=== PATIENT | female | born 1985 | race Caucasian/White ===

== ENCOUNTER 2017-03-08 09:33 | Emergency (ER) | payer MEDICAID ==
[~2017-03-08] VITALS: Ht 162.6 cm; Wt 59.0 kg
[2017-03-08 09:36] VITALS: Ht 162.6 cm; Wt 59.0 kg
[2017-03-08] MEDS ORDERED: ACETAMINOPHEN 325 MG TAB PO STA (10:11)
[2017-03-08] MEDS ORDERED: SOD CHLORIDE 0.9% 1,000 ML IV STA (10:11)
[2017-03-08 11:00] LABS: ADD SCAN DIFF NO
[2017-03-08 11:08] LABS: ADD UMIC YES; URINE BILIRUBIN (Dip) 1+ (NEGATIVE); URINE BLOOD (Dip) TRACE (NEGATIVE); URINE COLOR LT. YELLOW (YELLOW); URINE GLUCOSE (Dip) NEGATIVE (NEGATIVE); URINE KETONES (Dip) 3+ (NEGATIVE); URINE LEUKOCYTE ESTERASE (Dip) 2+ (NEGATIVE); URINE NITRITE (Dip) NEGATIVE (NEGATIVE); URINE TOTAL PROTEIN (Dip) 1+ (NEGATIVE); URINE UROBILINOGEN (Dip) 1.0 E.U./dL (0.1-1.0)
[2017-03-08 11:09] LABS: BASOPHILS % 0.3 % (0.0-2.0); EOSINOPHILS % 0.2 % (0.0-7.0); HEMATOCRIT 36.3 % (37.0-47.0); HEMOGLOBIN 11.9 g/dl (12.0-16.0); LYMPHOCYTES # 1.7 10^3/ul (0.8-2.9); LYMPHOCYTES % 13.5 % (15.0-51.0); MEAN CORPUSCULAR HEMOGLOBIN 29.1 pg (29.0-33.0); MEAN CORPUSCULAR HGB CONC 32.8 g/dl (32.0-37.0); MEAN CORPUSCULAR VOLUME 88.8 fl (82.0-101.0); MEAN PLATELET VOLUME 9.8 fl (7.4-10.4); MONOCYTE # 0.7 10^3/ul (0.3-0.9); NEUTROPHIL # 9.8 10^3/ul (1.6-7.5); NEUTROPHILS % 79.4 % (39.0-77.0); PLATELET COUNT 356 10^3/UL (140-415); RED BLOOD COUNT 4.09 10^6/ul (4.20-5.40); RED CELL DISTRIBUTION WIDTH 14.4 % (11.5-14.5); WHITE BLOOD COUNT 12.4 10^3/ul (4.8-10.8)
[2017-03-08 11:16] LABS: BACTERIA,URINE MANY
[2017-03-08 11:22] LABS: ALBUMIN 4.4 g/dl (3.3-4.9)
[2017-03-08 11:23] LABS: POTASSIUM 3.3 mmol/L (3.5-5.1)
[2017-03-08] MEDS ORDERED: CEFTRIAXONE 1 GM/50 ML (PMX) 50 ML IVPB STA (11:24)
[2017-03-08 11:25] LABS: ALBUMIN/GLOBULIN RATIO 1.12; BILIRUBIN,INDIRECT 0.3 mg/dl (0-1.1); BILIRUBIN,TOTAL 0.3 mg/dl (0.2-1.3); CREATININE 0.49 mg/dl (0.44-1.00); TOTAL PROTEIN 8.3 g/dl (6.1-8.1)
[2017-03-08 11:26] LABS: CALCIUM 9.6 mg/dl (8.4-10.2)
--- NOTE | 2017-03-08 11:29 | RADRPT ---
PROCEDURE: Right Upper Quadrant Ultrasound. CLINICAL INDICATION: epigastric pain, SP willow, TECHNIQUE: Multiple real-time images were acquired of the patient's right upper quadrant abdomen a nd retroperitoneum utilizing a high resolution transducer. COMPARISON: None FINDINGS: The liver measures 15.5 cm, and demonstrates normal echogenicity. The main portal vein is patent wit h proper directional flow. There is no intrahepatic biliary ductal dilatation. The extrahepatic comm on bile duct measures 5 mm. The gallbladder is absent.. The visualized pancreas is unremarkable. The right kidney measures 11.2 cm and demonstrates normal echotexture. There is fullness of the righ t renal collecting system without omar hydronephrosis.. The visualized abdominal aorta and IVC are grossly unremarkable. IMPRESSION: Fullness of the right renal collecting system without omar hydronephrosis, likely related to the re ported . Status post cholecystectomy. Normal CBD. RPTAT: EE Physician Bing Date Time Electronically viewed and signed by Physician Bing on 03/08/2017 11:29 /
--- NOTE | 2017-03-08 11:31 | RADRPT ---
PROCEDURE: US OB CLINICAL INDICATION: epigastric pain, SP willow TECHNIQUE: Multiple sonographic images of the pelvis were obtained. The images were reviewed on a PACS workstation. COMPARISON: None FINDINGS: The cervix is not well visualized. Bilateral adnexa are unremarkable. There is a single viable intrauterine gestation. Cardiac activity is present with 146 beats per minute. There is a breech presentation. The placenta is posterior. There is no evidence for an abruption or placenta previa. There is a normal amount of amniotic fluid with a maximum vertical pocket of 6.1 cm Measurements were made in order to determine age. The results are as follows (cm): BPD =4.70 HC =15.61 AC =14.74 FL =3.02 Estimated gestational age by ultrasound of approximately 19 weeks, 1 day. The estimated date of delivery by ultrasound is 08/01/2017. Reported gestational age by LMP of approximately 19 weeks, 5 days. The reported date of delivery by LMP is 07/28/2017. EFW = 299 grams (36th percentile) IMPRESSION: Single viable intrauterine gestation of approximately 19 weeks, 1 . The estimated date of delivery is day 08/01/2017 . Dating by ultrasound is within 4 days of dating by LMP. Breech presentation. Normal amount of amniotic fluid. Estimated weight is in the 36th percentile. RPTAT: EE Physician Bing Date Time Electronically viewed and signed by Physician Bing on 03/08/2017 11:31 RA/
[2017-03-08] MEDS ORDERED: CEPH-443 PO (12:35)
--- NOTE | 2017-03-08 13:12 | ERD ---
ER Documentation Chief Complaint Date/Time DATE: 03/08/17 TIME: 13:06 Chief Complaint abd pain raditing to back x 2 days , 19 weeks 4 days preg , no vag bleed HPI This is a 31-year-old female A0 stating that she is 19 weeks with a last menstrual period that started on October 21 presenting to the emergency department complaining of epigastric abdominal pain that radiates to her back that started 2 days ago. She states the pain is 6-8 out of 10, described as constant and sharp. She states the pain worsens when she lays down. She denies any fevers, nausea, vomiting, diarrhea, urinary symptoms, hematuria. She denies any pelvic pain or vaginal bleeding. Patient states that she has had a cholecystectomy 3 years ago and an appendectomy 12 years ago. Patient states her last meal was yesterday. Denies taking any medications today ROS All systems reviewed and are negative except as per history of present illness. Medications Home Meds Active Scripts Cephalexin* (Keflex*) 500 Mg Capsule, 500 MG PO TID for 14 Days, CAP Prov:QUINN JOHN PA-C 03/08/17 PMhx/Soc Medical and Surgical Hx: pt denies Medical Hx, pt denies Surgical Hx Hx Alcohol Use: No Hx Substance Use: No Hx Tobacco Use: No Smoking Status: Never smoker Physical Exam Vitals Vital Signs Date Time Temp Pulse Resp B/P Pulse Ox O2 Delivery O2 Flow Rate FiO2 03/08/17 09:36 97.8 102 18 122/75 98 Physical Exam GENERAL: well-developed/well-nourished, in no apparent distress, non-toxic appearing HENT: NC/AT, moist mucous membranes EYES: Conjunctiva normal NECK: Supple, no lymphadenopathy PULM: CTA bilaterally, no rales, rhonchi, or wheezing heard CV: Normal S1S2, RRR, good capillary refill GI: Soft, distended due to , mild tender to palpation epigastric region Normal bowel sounds, no masses or organomegaly felt on exam No gross peritonitis, no bruits Negative Rovsing, negative [place], negative McBurney's point, Negative CVAT BACK: No masses EXT: No clubbing, cyanosis, or edema NEURO: Alert and Orientated SKIN: Intact, normal turgor PSYCH: Normal mood and mentation Result Diagram: 03/08/17 1035 03/08/17 1035 Results 24 hrs Laboratory Tests Test 03/08/17 10:35 White Blood Count 12.410^3/ul Red Blood Count 4.0910^6/ul Hemoglobin 11.9g/dl Hematocrit 36.3% Mean Corpuscular Volume 88.8fl Mean Corpuscular Hemoglobin 29.1pg Mean Corpuscular Hemoglobin Concent 32.8g/dl Red Cell Distribution Width 14.4% Platelet Count 76849^3/UL Mean Platelet Volume 9.8fl Neutrophils % 79.4% Lymphocytes % 13.5% Monocytes % 6.0% Eosinophils % 0.2% Basophils % 0.3% Nucleated Red Blood Cells % 0.0/100WBC Neutrophils # 9.810^3/ul Lymphocytes # 1.710^3/ul Monocytes # 0.710^3/ul Eosinophils # 0.010^3/ul Basophils # 0.010^3/ul Nucleated Red Blood Cells # 0.010^3/ul Urine Color LT. YELLOW Urine Clarity CLEAR Urine pH 6.0 Urine Specific [place] 1.025 Urine Ketones 3+ Urine Nitrite NEGATIVE Urine Bilirubin 1+ Urine Ictotest Pending Urine Urobilinogen 1.0 E.U./dL Urine Leukocyte Esterase 2+ Urine Microscopic RBC 5-10/HPF Urine Microscopic WBC 10-25/HPF Urine Epithelial Cells MODERATE Urine Bacteria MANY Urine Hemoglobin TRACE Urine Glucose NEGATIVE% Urine Total Protein 1+ Sodium Level 138mmol/L Potassium Level 3.3mmol/L Chloride Level 101mmol/L Carbon Dioxide Level 22mmol/L Anion Gap 18 Blood Urea Nitrogen 10mg/dl Creatinine 0.49mg/dl Glucose Level 114mg/dl Calcium Level 9.6mg/dl Total Bilirubin 0.3mg/dl Direct Bilirubin 0.00mg/dl Indirect Bilirubin 0.3mg/dl Aspartate Amino Transf (AST/SGOT) 25IU/L Alanine Aminotransferase (ALT/SGPT) 44IU/L Alkaline Phosphatase 94IU/L Total Protein 8.3g/dl Albumin 4.4g/dl Globulin 3.90g/dl Albumin/Globulin Ratio 1.12 Lipase 78U/L Current Medications Medications (Trade) Dose Ordered Sig/Bri Route PRN Reason Start Time Stop Time Status Last Admin Dose Admin Sodium Chloride (NS) 1,000 ml @ 1,000 mls/hr Q1H STAT IV 03/08/17 10:11 03/08/17 11:10 DC 03/08/17 10:30 Acetaminophen 650 mg 650 mg ONCE STAT PO 03/08/17 10:11 03/08/17 10:15 DC 03/08/17 10:29 Ceftriaxone Sodium (Rocephin) 50 ml @ 100 mls/hr ONCE STAT IVPB 03/08/17 11:24 03/08/17 11:53 DC 03/08/17 12:28 Procedures/MDM This is a 31-year-old female A0 stating that she is 19 weeks with a last menstrual period that started on October 21, 2016 with history of cholecystectomy and appendicectomy presenting to the emergency department complaining of epigastric abdominal pain that radiates to her back that started 2 days ago. Differentials include but not limited to urinary tract infection, gastritis, gastroenteritis. Low suspicion for pancreatitis, choledocholithiasis , cholangitis, obstruction or other acute abdominal conditions. IV access established. Patient was given 1 L fluids and PO Tylenol. CBC showed mild leukocytosis, there was no evidence of any significant anemia, renal , liver or electrolyte abnormalities. Lipase is unremarkable. An ultrasound of the gallbladder was done and did not show any common bile duct dilation, status post cholecystectomy with Fullness of the right renal collecting system without omar hydronephrosis, likely related to the reported . Pelvic ultrasound was done and radiologist stated: Fullness of the right renal collecting system without omar hydronephrosis, likely related to the reported . Status post cholecystectomy. Normal CBD. Urinalysis did show evidence of a urinary tract infection with trace hematuria. Patient was afebrile in the exam room, she appears well and nontoxic appearing , she did not have significant leukocytosis. No true CVAT tenderness. In the ED patient was given 1 g of ceftriaxone through IV and a prescription for Keflex for the next 2 weeks. I discussed with her to follow-up with her [employer]PA[employer] in the next couple days, discussed return to the ER for any worsening symptoms. Patient understands and agrees with this plan. Patient stable for discharge. Departure Diagnosis: Primary Impression: UTI (urinary tract infection) Urinary tract infection type: acute cystitis Hematuria presence: with hematuria Qualified Code: N30.01 - Acute cystitis with hematuria Additional Impression: Epigastric pain Condition: Stable Patient Instructions: Understanding Urinary Tract Infections (UTIs), Epigastric Pain (Uncertain Cause) Referrals: [facility] Usted se bran hecho un examen mdico de control que le indica que no est en dalila condicin que requiera tratamiento urgente en el Departamento de Emergencia. Un estudio ms profundo y el tratamiento de becker condicin pueden esperar sin ningn riesgo hasta que usted sea atendida/o en el consultorio de becker mdico o dalila cl nallely. Es responsabilidad suya arreglar dalila leopoldo para el seguimiento del latha. MANEJO DE CONDICIONES NO URGENTES EN EL FUTURO 1) Si usted tiene un mdico de atencin primaria: Usted debera llamar a becker mdico de atencin primaria antes de venir al departamento de emergencia. Despus de las horas de consultorio, becker doctor o becker asociado/a est disponible por telfono. El mdico o enfermero de nahum en el servicio telefnico puede asesorarle por jordan medio para atender el problema, o lahta contrario se puede programar dalila leopoldo. 2) Si usted no tiene un mdico de atencin primaria: Llame al mdico o clnica de referencia que aparece abajo roselyn las horas de consultorio para hacer dalila leopoldo para que le vean. CLINICAS: [facility] [phone] [facility] [phone] [facility] [phone] [facility] [phone] [place] [phone] [facility]. [phone] [address] Additional Instructions: Visite a becker mdico maana para un EXAMEN.Regrese a estas instalaciones si no se mejora camila esperbamos o camila le dijimos. [place] toda la medicina sheree y camila se le indic. Regrese a estas instalaciones si no se mejora camila esperbamos o camila le dijimos. QUINN JOHN PA-C March 08, 2017 13:12
[2017-03-08 13:25] VITALS: BP 118/80; PULSE 65; RESP 18; TEMP 98.3
[2017-03-08 14:02] LABS: ICTOTEST NEGATIVE (NEGATIVE)
== END 2017-03-08 13:20 | disposition home or self-care (01) ==
LOC: FTE 09:33
DX: O26.892 Other specified pregnancy related conditions, second trimester (principal); R10.13 Epigastric pain; O23.12 Infections of bladder in pregnancy, second trimester; Z3A.19 19 weeks gestation of pregnancy
CPT/HCPCS: 36415; 76705; 76805; 80053; 81001; 83690; 85025; 87086; 96374; J0696; J7030; Z7502; Z7610; 81003

== ENCOUNTER 2017-03-18 23:16 | Outpatient (CLI) | payer MEDICAID ==
[~2017-03-18] VITALS: Ht 157.5 cm; Wt 62.6 kg
[~2017-03-18 23:16] MED LIST: CEPH-443 PO
[2017-03-18 23:44] VITALS: BP 105/60; PULSE 90; RESP 18
[2017-03-18] MEDS ORDERED: PRENAT PO (23:47)
[2017-03-19 00:16] LABS: ADD UMIC YES; URINE BILIRUBIN (Dip) NEGATIVE (NEGATIVE); URINE BLOOD (Dip) NEGATIVE (NEGATIVE); URINE COLOR LT. YELLOW (YELLOW); URINE GLUCOSE (Dip) NEGATIVE (NEGATIVE); URINE KETONES (Dip) NEGATIVE (NEGATIVE); URINE LEUKOCYTE ESTERASE (Dip) TRACE (NEGATIVE); URINE NITRITE (Dip) NEGATIVE (NEGATIVE); URINE TOTAL PROTEIN (Dip) NEGATIVE (NEGATIVE); URINE UROBILINOGEN (Dip) 0.2 E.U./dL (0.1-1.0)
[2017-03-19 01:12] LABS: BACTERIA,URINE FEW; SQUAMOUS EPITHELIAL CELL,UR FEW; URINE RBCS 0-2 /HPF (0)
[2017-03-19] MEDS ORDERED: ACETAMINOPHEN 500 MG TAB PO STA (01:49)
--- NOTE | 2017-03-19 02:36 | TRIAGE ---
OB Triage Datetime Report Generated by CPN: 03/19/2017 02:35 Datetime: 03/19/2017 01:50 Stage of : OB Triage Datetime: 03/19/2017 01:00 Stage of : OB Triage Datetime: 03/19/2017 00:25 Stage of : OB Triage Monitor Mode: External Quality: Mild Pattern: Normal: <= 5 Contractions in 10 Minutes Resting Tone [place]: Relaxed Heart Rate FHR Baseline Rate: 145 Monitor Mode: External US FHR Baseline Changes: No Baseline Change Category: Category I Comments: EFM removed Datetime: 03/18/2017 23:50 Stage of : OB Triage Datetime: 03/18/2017 23:47 Time of Arrival: 03/18/2017 23:11 Arrived By: Wheelchair Arrived From: Home Chief Complaint: w/ c/o rt and lt flank pain. States was treated for kidney infection in ER 5 /3 Movement: Present Contractions: Denies/Absent Rupture of Membranes: Denies Vaginal Bleeding: None Vaginal Discharge: Denies Recent Sexual Intercouse: Denies Abdominal Trauma: Not Applicable Patient Complaints: Back Pain; Urinary Frequency Time Provider Notified: 03/19/2017 23:50 Provider Notified: Dr Huff Initial Plan: EFM, UA Datetime: 03/18/2017 23:30 Stage of : OB Triage Maternal Assessment Level of Consciousness: Fully Conscious Headache: Denies Blurred Vision: No Respiratory Effort: Unlabored Nausea/Vomiting: Denies RUQ Epigastric Pain: Denies Facial Edema: None Labor Evaluation Frequency: placed Monitor Mode: External Pattern: Normal: <= 5 Contractions in 10 Minutes Resting Tone [place]: Relaxed Monitor Mode: External US Comments: FHT 145 Pain Assessment Pain Scale: 8 Pain Presence: Constant Pain Type: Dull Pain Location: Back Pain Assessment Comments: Rt and LT flank
--- NOTE | 2017-03-19 02:43 | QN ---
Documentation Comment OB Triage- Laborist Pt is a 31yo at 21+0 presenting with bilateral upper back pain and concerned about a renal stone. Pt was seen in the ED on 03/08 for abdominal pain radiating to the back. RUQ U/S was negative and pt was treated for presumptive UTI with IV Ceftriaxone followed by 2wks of Keflex which pt states she completed 4d ago. Today denies urinary sxs, however back pain worried her. On further discussion, pt states the pain she has in her back is intermittent, worse for the last 1 week and preceded . Denies having been evaluated for pain the past. Pt denies fevers, chills, hematuria, LOF or VB. +FM VS 98.2 105/60 90 18 FHT: 140s Gen: well appearing, NAD Abd: soft, NT Back: mild ttp immediately inferior to scapula bilaterally U/A trace leuks only A/P No e/o UTI, pyelonephritis or nephrolithiasis today Tylenol 1g PO x1 given Encouraged warm compresses, massage and abdominal binder (to protect lower back as continues) Discussed with pt need for follow-up UCx with primary provider in OB clinic as ISABELLE s/p treatment for presumptive UTI PTL/PPROM precautions reviewed Pt and partner expressed understanding of the above teaching Pt to f/up with primary OB as scheduled and with OB triage CAMILLA Khoury MD March 19, 2017 02:43
== END 2017-03-19 02:10 | disposition home or self-care (01) ==
LOC: L-D 23:16 → OBT 23:16
PROVIDERS: ATTEND Obstetrics & Gynecology
DX: O26.892 Other specified pregnancy related conditions, second trimester (principal); M54.9 Dorsalgia, unspecified; Z3A.21 21 weeks gestation of pregnancy
CPT/HCPCS: 81001; Z7610; 81003; G0463

== ENCOUNTER 2017-07-30 13:20 | Inpatient (IN) | payer MEDICAID ==
[~2017-07-30] VITALS: Ht 157.5 cm; Wt 68.9 kg
[~2017-07-30 13:20] MED LIST changes: -CEPH-443 PO; +PRENAT PO
[2017-07-30 13:26] VITALS: Ht 157.5 cm; Wt 68.9 kg
[2017-07-30] MEDS ORDERED: LACTATED RINGER'S 1,000 ML IV PRN (16:43)
[2017-07-30] MEDS ORDERED: CARBOPROST 250 MCG INJ IM PRN (17:00)
[2017-07-30] MEDS ORDERED: MISOPROSTOL 200 MCG TAB PR PRN (17:00)
[2017-07-30] MEDS ORDERED: OXYTOCIN 30 UNITS/LR 500 ML IV PRN (17:00)
[2017-07-30] MEDS ORDERED: LIDOCAINE 1% (MPF) 30 ML INJ INJ PRN (17:00)
[2017-07-30] MEDS ORDERED: METHYLERGONOVINE 0.2 MG INJ IM PRN (17:00)
[2017-07-30] MEDS ORDERED: BUTORPHANOL 2 MG INJ IV PRN (17:00)
[2017-07-30] MEDS ORDERED: OXYTOCIN 30 UNITS/LR 500 ML IV SCH ×3 (17:00→21:00)
--- NOTE | 2017-07-30 17:15 | HP ---
Date/Time of Note Date/Time of Note DATE: 07/30/17 TIME: 17:13 OB - History Hx of Present Chief Complaint: contractions Estimated Due Date: Jul 28, 2017 : 1 Para: 0 Spontaneous : 0 Therapeutic : 0 Care: Other (records not available) Ultrasounds: Other (records not available) Obstetrical Complications: None Medical Complications: None Past Family/Social History * Past Medical, Surgical, Family and Obstetric Histories reviewed from chart. GBS Status: Negative OB Admission Exam Vital Signs Vital Signs Vital Signs Date Time Temp Pulse Resp B/P Pulse Ox O2 Delivery O2 Flow Rate FiO2 07/30/17 13:26 98.6 Physical Exam HEENT: WNL Heart: Rhythm Normal Lungs: Clear, Equal Abdomen: WNL Extremities: Normal Reflexes: Normal Cervical Dilatation: 3cm Effacement: 100% Station: -1 Heart Rate: 130's Accelerations: Accelerations Present Decelerations: No Decelerations Varibility: Moderate OB Assessment/Plan Reason for admission: active labor Plan: Expectant Management BRENDA KEARNEY MD Jul 30, 2017 17:15
[2017-07-30 17:26] LABS: BASOPHILS % 0.4 % (0.0-2.0); EOSINOPHILS % 0.4 % (0.0-7.0); HEMATOCRIT 36.1 % (37.0-47.0); HEMOGLOBIN 12.5 g/dl (12.0-16.0); LYMPHOCYTES # 2.6 10^3/ul (0.8-2.9); LYMPHOCYTES % 31.9 % (15.0-51.0); MEAN CORPUSCULAR HEMOGLOBIN 30.2 pg (29.0-33.0); MEAN CORPUSCULAR HGB CONC 34.6 g/dl (32.0-37.0); MEAN CORPUSCULAR VOLUME 87.2 fl (82.0-101.0); MEAN PLATELET VOLUME 12.8 fl (7.4-10.4); MONOCYTE # 0.5 10^3/ul (0.3-0.9); MONOCYTES % 5.6 % (0.0-11.0); NUCLEATED RED BLOOD CELLS% 0.2 /100WBC (0.0-0.0); PLATELET COUNT 181 10^3/UL (140-415); RED BLOOD COUNT 4.14 10^6/ul (4.20-5.40); WHITE BLOOD COUNT 8.2 10^3/ul (4.8-10.8)
[2017-07-30 17:34] LABS: ADD UMIC YES; UR ASCORBIC ACID NEGATIVE (NEGATIVE); UR BACTERIA FEW /HPF (NONE SEEN); UR BILIRUBIN (Dip) NEGATIVE (NEGATIVE); UR BLOOD (Dip) NEGATIVE (NEGATIVE); UR CLARITY SLIGHTLY CLOUDY (CLEAR); UR COLOR YELLOW (YELLOW); UR GLUCOSE (Dip) NEGATIVE (NEGATIVE); UR KETONES (Dip) NEGATIVE (NEGATIVE); UR LEUKOCYTE ESTERASE (Dip) NEGATIVE Leu/ul (NEGATIVE); UR MUCUS FEW /HPF (NONE SEEN); UR NITRITE (Dip) NEGATIVE (NEGATIVE); UR RBC 1 /HPF (0-5); UR SPECIFIC GRAVITY (Dip) 1.016 (1.003-1.030); UR TOTAL PROTEIN (Dip) 2+ mg/dl (NEGATIVE); UR UROBILINOGEN (Dip) NEGATIVE (NEGATIVE)
[2017-07-30 17:41] LABS: INR 0.84; PROTIME 11.5 Sec (12.2-14.2); PT RATIO 0.9
[2017-07-30 17:42] LABS: PARTIAL THROMBOPLASTIN TIME 27.9 Sec (25.0-35.0)
[2017-07-30 17:44] LABS: ALBUMIN 3.4 g/dl (3.3-4.9); ALBUMIN/GLOBULIN RATIO 1.03; BILIRUBIN,INDIRECT 0.1 mg/dl (0-1.1); BILIRUBIN,TOTAL 0.1 mg/dl (0.2-1.3); CALCIUM 9.3 mg/dl (8.4-10.2); CREATININE 0.72 mg/dl (0.44-1.00); TOTAL PROTEIN 6.7 g/dl (6.1-8.1); URIC ACID 7.3 mg/dl (3.1-7.9)
[2017-07-30 17:53] LABS: POTASSIUM 4.4 mmol/L (3.5-5.1)
[2017-07-30 18:07] LABS: FIBRIN SPLIT PRODUCT <10 ug/ml (<10)
[2017-07-30] MEDS ORDERED: BUPIVACAINE 0.25% (MPF) 10 ML 10 ML VIAL ONE (20:07)
--- NOTE | 2017-07-30 20:57 | RADRPT ---
PROCEDURE: Obstetrical ultrasound. CLINICAL INDICATION: , evaluation. Pelvic pain. TECHNIQUE: Transabdominal sonographic images of the uterus obtained after first trimester , greater than 14 weeks gestation. Single intrauterine gestation present. COMPARISON: 03/15/2017 FINDINGS: Single intrauterine gestation. There is a cephalic presentation. Cervix not visualized. Measurements were made in order to determine age. The results are as follows: BPD = 36 weeks 6 day(s) HC = 35 weeks 3 day(s) AC = 36 weeks 3 day(s) FL = 39 weeks 3 day(s) appears over measured [place] = not measured Heart rate = 144 beats per minute The placenta is posterior. There is no evidence for an abruption or placenta previa. Ovaries are not visualized. IMPRESSION: Single intrauterine gestation of approximately 37 weeks 0 days by ultrasound criteria. [place] estimated weight = 3116 g; 11 percentile for gestational age of 40 weeks 2 days. RPTAT: AADD .Andrew Suárez MD, MD Date Time Electronically viewed and signed by .Andrew Suárez MD, on 07/30/2017 20:56 .B/
--- NOTE | 2017-07-30 20:58 | RADRPT ---
PROCEDURE: Obstetrical ultrasound for biophysical profile CLINICAL INDICATION: Biophysical profile. . TECHNIQUE: Obstetrical ultrasound of the uterus for biophysical profile. Transabdominal views are obtained. COMPARISON: 03/15/2017 FINDINGS: Single intrauterine gestation. Presentation: Cephalic. Placenta: Posterior No evidence of placental abruption. No evidence of placenta previa. breathing movement = 2/2 tone = 2/2 motion = 2/2 GLENROY = 2/2 GL[place]Y = 7.9 cm heart rate: 130 beats per minute IMPRESSION: Single intrauterine gestation. Biophysical profile 06/13 RPTAT: AADD .Andrew Suárez MD, MD Date Time Electronically viewed and signed by .Andrew Suárez MD, on 07/30/2017 20:57 .B/
[2017-07-30] MEDS: LACTATED RINGER'S 1,000 ML IV SCH ×2 (21:18→21:26)
[2017-07-31] VITALS (15 sets, daily range): BP systolic 104–159; BP diastolic 74–112; PULSE 69–100; RESP 16–20
[2017-07-31] MEDS ORDERED: FENTAnyl 2MCG/ML-ROPIV 0.2% 100 ML ONE (01:58)
[2017-07-31] MEDS ORDERED: FENTAnyl 2MCG/ML-ROPIV 0.2% 100 ML BAG EPI SCH (02:30)
[2017-07-31] MEDS ORDERED: NALOXONE (0.4 MG/ML) INJ IV PRN (02:30)
[2017-07-31] MEDS ORDERED: MEPERIDINE 25 MG INJ ONE (02:34)
[2017-07-31] MEDS ORDERED: MEPERIDINE 25 MG INJ IV ONE (03:00)
[2017-07-31] MEDS: LACTATED RINGER'S 1,000 ML IV SCH (04:24)
[2017-07-31] MEDS ORDERED: MINERAL OIL LIGHT 10 ML VIAL TOP ONE (06:00)
[2017-07-31] MEDS: LACTATED RINGER'S 1,000 ML IV* SCH ×3 (07:23→22:29)
--- NOTE | 2017-07-31 07:28 | LDN ---
Date/Time of Note Date/Time of Note DATE: 07/31/17 TIME: 07:25 Delivery Summary of a viable baby boy weighing 3520 grams, 19" long, and with Apgars of 8/9. Weeks of Gestation 40w 3d Placenta Delivered: Spontaneously Meconium: none Episiotomy: No Perineal laceration: 1 Laceration repair: First deegree perineal laceration repaired with 2-0 chromic. Anesthesia type: Epidural Estimated blood loss: 150 Sponge & Needle done & correct: Yes All needle counts correct: Yes Any foreign bodies felt in the: No (vagina) Problems: Delivery Information Sex Sex: male Apgars 1 Minute: 8 5 Minute: 9 Suctioning Nose & mouth suctioned at danisha: Yes Delee suction performed: No Umbilical Cord Umbilical cord with: 3 Vessels Cord presentations: no nuchal cord Cord Blood was obtained: Yes Mother & Baby Disposition Disposition Mom & Baby to Maternity; Good: Yes Baby to NICU: No ANN POWELL MD Jul 31, 2017 07:28 ANN POWELL MD Jul 31, 2017 07:28
[2017-07-31] MEDS ORDERED: BENZOCAINE 20% 56 ML SPRAY TOP PRN (07:30)
[2017-07-31] MEDS ORDERED: CARBOPROST 250 MCG INJ IM PRN (07:30)
[2017-07-31] MEDS ORDERED: METHYLERGONOVINE 0.2 MG INJ IM PRN (07:30)
[2017-07-31] MEDS ORDERED: LANOLIN 7 GM TUBE TOP PRN (07:30)
[2017-07-31] MEDS ORDERED: MISOPROSTOL 200 MCG TAB PR PRN (07:30)
[2017-07-31] MEDS ORDERED: HYDROCODONE/APAP (5/325) TAB PO PRN (07:30)
[2017-07-31] MEDS ORDERED: MAGNESIUM SULFATE 4 GM/100 ML 100 ML ONE (07:41)
[2017-07-31] MEDS: OXYTOCIN 30 UNITS/LR 500 ML IV PRN ×2 (08:00→14:43)
[2017-07-31] MEDS ORDERED: MAGNESIUM SULFATE 4 GM/100 ML 100 ML IV ONE (08:00)
[2017-07-31] MEDS: MAGNESIUM SULFATE 20 GM/500 ML 500 ML IV SCH ×2 (08:25→18:35)
[2017-07-31] MEDS ORDERED: LABETALOL 100 MG TAB PO SCH (12:30)
[2017-07-31] MEDS: IBUPROFEN 600 MG TAB PO SCH ×2 (13:15→18:35)
[2017-07-31] MEDS ORDERED: LABETALOL 100 MG TAB PO ONE (17:00)
[2017-07-31] MEDS: LABETALOL 100 MG TAB PO SCH (21:00)
[2017-08-01] VITALS (12 sets, daily range): BP systolic 106–121; BP diastolic 75–92; PULSE 70–85; RESP 16–20
[2017-08-01] MEDS: IBUPROFEN 600 MG TAB PO SCH ×5 (00:31→23:43)
[2017-08-01] MEDS: MAGNESIUM SULFATE 20 GM/500 ML 500 ML IV SCH (04:53)
[2017-08-01] MEDS: LACTATED RINGER'S 1,000 ML IV* SCH ×2 (07:23→15:23)
[2017-08-01] MEDS: LABETALOL 100 MG TAB PO SCH (09:00)
[2017-08-01 09:21] LABS: BASOPHIL # 0.1 10^3/ul (0.0-0.1); BASOPHILS % 0.3 % (0.0-2.0); EOSINOPHILS # 0.1 10^3/ul (0.0-0.5); EOSINOPHILS % 0.3 % (0.0-7.0); HEMATOCRIT 33.8 % (37.0-47.0); HEMOGLOBIN 11.1 g/dl (12.0-16.0); LYMPHOCYTES # 2.5 10^3/ul (0.8-2.9); LYMPHOCYTES % 16.9 % (15.0-51.0); MEAN CORPUSCULAR HGB CONC 32.8 g/dl (32.0-37.0); MEAN CORPUSCULAR VOLUME 88.3 fl (82.0-101.0); MEAN PLATELET VOLUME 12.2 fl (7.4-10.4); MONOCYTE # 0.6 10^3/ul (0.3-0.9); NEUTROPHIL # 11.5 10^3/ul (1.6-7.5); NEUTROPHILS % 77.8 % (39.0-77.0); PLATELET COUNT 127 10^3/UL (140-415); RED BLOOD COUNT 3.83 10^6/ul (4.20-5.40); RED CELL DISTRIBUTION WIDTH 17.3 % (11.5-14.5); WHITE BLOOD COUNT 14.8 10^3/ul (4.8-10.8)
--- NOTE | 2017-08-01 10:42 | PN ---
Date/Time of Note Date/Time of Note DATE: 08/01/17 TIME: 10:38 OB Subjective Subjective Subjective Laboratory Tests Test 07/31/17 13:15 07/31/17 18:09 08/01/17 00:30 08/01/17 08:15 Magnesium Level 5.6mg/dl 6.6mg/dl 6.9mg/dl 7.3mg/dl White Blood Count 14.810^3/ul Red Blood Count 3.8310^6/ul Hemoglobin 11.1g/dl Hematocrit 33.8% Mean Corpuscular Volume 88.3fl Mean Corpuscular Hemoglobin 29.0pg Mean Corpuscular Hemoglobin Concent 32.8g/dl Red Cell Distribution Width 17.3% Platelet Count 50237^3/UL Mean Platelet Volume 12.2fl Neutrophils % 77.8% Lymphocytes % 16.9% Monocytes % 4.0% Eosinophils % 0.3% Basophils % 0.3% Nucleated Red Blood Cells % 0.0/100WBC Neutrophils # 11.510^3/ul Lymphocytes # 2.510^3/ul Monocytes # 0.610^3/ul Eosinophils # 0.110^3/ul Basophils # 0.110^3/ul Nucleated Red Blood Cells # 0.010^3/ul Current Medications Medications (Trade) Dose Ordered Sig/Bri Route PRN Reason Start Time Stop Time Status Last Admin Dose Admin Lactated Ringer's (Lr) 1,000 ml @ 125 mls/hr Q8H IV 07/30/17 16:43 07/31/17 07:25 DC 07/31/17 04:24 Butorphanol Tartrate (Stadol) 2 mg Q2H PRN IV PAIN 07/30/17 17:00 07/31/17 07:25 DC Lidocaine 30 ml 30 ml ONCE PRN INJ EPISIOTOMY/TEARING 07/30/17 17:00 07/31/17 07:26 DC Oxytocin/Lactated Ringer's 500 ml @ 125 mls/hr ONCE -MAY REPEAT X1 IV 07/30/17 17:00 07/31/17 07:26 DC 07/31/17 07:11 Oxytocin/Lactated Ringer's 500 ml @ 125 mls/hr ONCE IV 07/30/17 17:00 07/31/17 07:26 DC Lactated Ringer's 1,000 ml @ 2,000 mls/hr Q30M PRN IV PRE-EPIDURAL BOLUS 07/30/17 16:43 07/31/17 07:26 DC 07/31/17 01:26 Oxytocin/Lactated Ringer's 500 ml @ 0 mls/hr ONCE PRN IV For Hemorrhage Management 07/30/17 17:00 07/31/17 07:26 DC Methylergonovine Maleate (Methergine) 0.2 mg ONCE PRN IM VAGINAL BLEEDING 07/30/17 17:00 07/31/17 07:26 DC Carboprost Tromethamine (Hemabate) 250 mcg ONCE PRN IM VAGINAL BLEEDING 07/30/17 17:00 07/31/17 07:26 DC Misoprostol (Cytotec) 1,000 mcg ONCE PRN IN VAGINAL BLEEDING 07/30/17 17:00 07/31/17 07:26 DC Bupivacaine HCl 10 ml 10 ml STK-MED ONCE .ROUTE 07/30/17 20:07 07/30/17 20:08 DC Oxytocin/Lactated Ringer's 500 ml @ 0 mls/hr Q0M IV 07/30/17 21:00 07/31/17 07:25 DC 07/30/17 21:22 Fentanyl/ Ropivacaine 100 ml @ ud STK-MED ONCE .ROUTE 07/31/17 01:58 07/31/17 01:59 DC Naloxone HCl (Narcan) 0.2 mg Q2M PRN IV FOR RESP RATE 8 OR LESS 07/31/17 02:30 07/31/17 07:25 DC Fentanyl/ Ropivacaine 100 ml EPIDURAL (PCEA) EPI 07/31/17 02:30 07/31/17 07:25 DC Meperidine HCl (Demerol) 25 mg STK-MED ONCE .ROUTE 07/31/17 02:34 07/31/17 02:35 DC Meperidine HCl (Demerol) 25 mg ONCE ONCE IV 07/31/17 03:00 07/31/17 03:01 DC 07/31/17 02:38 Mineral Oil 30 ml 30 ml ONCE ONCE TOP 07/31/17 06:00 07/31/17 06:26 DC 07/31/17 07:11 Lactated Ringer's (Lr) 1,000 ml @ 125 mls/hr Q8H IV* 07/31/17 07:23 07/31/17 22:29 Ibuprofen (Motrin) 600 mg Q6 PO 07/31/17 12:00 08/01/17 06:10 Acetaminophen/ Hydrocodone Bitart ([place] (5/325)) 1 tab Q4H PRN PO PAIN LEVEL 1-5 07/31/17 07:30 Benzocaine (Dermoplast [place]) 1 spray BEDSIDE MEDICATION PRN TOP HEMORRHOID/EPISIOTMY PAIN 07/31/17 07:30 07/31/17 14:41 Lanolin (Acf-S-Gpamsp) 1 applic BEDSIDE MEDICATION PRN TOP BEDSIDE FOR JOSE LUIS TO NIPPLES 07/31/17 07:30 07/31/17 13:15 Diphtheria/ Tetanus/Acell Pertussis 0.5 ml 0.5 ml ONCE ONCE IM* 08/02/17 09:00 08/02/17 09:01 Oxytocin/Lactated Ringer's 500 ml @ 0 mls/hr ONCE PRN IV For Hemorrhage Management 07/31/17 07:30 07/31/17 14:43 Methylergonovine Maleate (Methergine) 0.2 mg ONCE PRN IM VAGINAL BLEEDING 07/31/17 07:30 Carboprost Tromethamine (Hemabate) 250 mcg ONCE PRN IM VAGINAL BLEEDING 07/31/17 07:30 Misoprostol 1000 mcg 1,000 mcg ONCE PRN IN VAGINAL BLEEDING 07/31/17 07:30 Magnesium Sulfate 100 ml @ 200 mls/hr ONCE ONCE IV 07/31/17 08:00 07/31/17 08:29 DC 07/31/17 07:59 Magnesium Sulfate 500 ml @ 50 mls/hr Q10H IV 07/31/17 07:35 08/01/17 08:33 DC 08/01/17 04:53 Magnesium Sulfate (Magnesium Sulfate 4 Gm/100 ml) 100 ml @ STK-MED ONCE .ROUTE 07/31/17 07:41 07/31/17 07:42 DC Labetalol HCl (Normodyne) 100 mg BID PO 07/31/17 12:30 07/31/17 16:38 DC 07/31/17 13:17 Labetalol HCl (Normodyne) 100 mg ONCE ONCE PO 07/31/17 17:00 07/31/17 17:01 DC 07/31/17 16:54 Labetalol HCl (Normodyne) 200 mg BID PO 07/31/17 21:00 Influenza Virus Vaccine (Fluzone) 0.5 ml ONCE ONCE IM* 08/01/17 20:00 08/01/17 20:01 JOHNNY BELLAMY MD Aug 01, 2017 10:42
[2017-08-01] MEDS ORDERED: INFLUENZA VIRUS VACCINE 0.5 ML SYG IM* ONE (20:00)
[2017-08-02 04:00] VITALS: BP 111/76; PULSE 77; RESP 18
[2017-08-02] MEDS: IBUPROFEN 600 MG TAB PO SCH ×2 (05:59→12:22)
[2017-08-02] MEDS: LACTATED RINGER'S 1,000 ML IV* SCH (08:11)
[2017-08-02 08:15] VITALS: BP 114/79; PULSE 88; RESP 18
[2017-08-02] MEDS ORDERED: DIPHTH/TET/ACEL PERTUSS (ADULT) 0.5 ML VIAL IM* ONE (09:00)
[2017-08-02] MEDS: LABETALOL 100 MG TAB PO SCH ×2 (09:00→09:04)
[2017-08-02 09:06] LABS: ALBUMIN 2.8 g/dl (3.3-4.9); ALBUMIN/GLOBULIN RATIO 0.84; BILIRUBIN,INDIRECT 0.1 mg/dl (0-1.1); BILIRUBIN,TOTAL 0.1 mg/dl (0.2-1.3); CALCIUM 7.2 mg/dl (8.4-10.2); CREATININE 0.64 mg/dl (0.44-1.00); POTASSIUM 4.5 mmol/L (3.5-5.1); TOTAL PROTEIN 6.1 g/dl (6.1-8.1)
[2017-08-02 12:15] VITALS: BP 134/81; PULSE 87; RESP 18
--- NOTE | 2017-08-02 19:56 | DS ---
Date/Time of Note Date/Time of Note DATE: 08/02/17 TIME: 19:53 Obstetrical Discharge Record Final Diagnosis Final Diagnosis: Term delivered Vaginal Delivery Obstetrical Delivery: Spontaneous Condition on Discharge Physical Assessment Last Vitals: Post day 2 Patient is doing well, Ambulatory She is afebrile Abdomen is soft , Fundus is firm Moderate amount of lochia Breasts are soft, Nipples are intact No calf tenderness. Perineum is healing well. Breast feeding the new born. Laboratory Tests Test 08/02/17 08:14 Sodium Level 136mmol/L Potassium Level 4.5mmol/L Chloride Level 110mmol/L Carbon Dioxide Level 24mmol/L Anion Gap 7 Blood Urea Nitrogen 9mg/dl Creatinine 0.64mg/dl Glucose Level 77mg/dl Calcium Level 7.2mg/dl Total Bilirubin 0.1mg/dl Direct Bilirubin 0.00mg/dl Indirect Bilirubin 0.1mg/dl Aspartate Amino Transf (AST/SGOT) 43IU/L Alanine Aminotransferase (ALT/SGPT) 70IU/L Alkaline Phosphatase 178IU/L Total Protein 6.1g/dl Albumin 2.8g/dl Globulin 3.30g/dl Albumin/Globulin Ratio 0.84 Current Medications Medications (Trade) Dose Ordered Sig/Bri Route PRN Reason Start Time Stop Time Status Last Admin Dose Admin Lactated Ringer's (Lr) 1,000 ml @ 125 mls/hr Q8H IV 07/30/17 16:43 07/31/17 07:25 DC 07/31/17 04:24 Butorphanol Tartrate (Stadol) 2 mg Q2H PRN IV PAIN 07/30/17 17:00 07/31/17 07:25 DC Lidocaine 30 ml 30 ml ONCE PRN INJ EPISIOTOMY/TEARING 07/30/17 17:00 07/31/17 07:26 DC Oxytocin/Lactated Ringer's 500 ml @ 125 mls/hr ONCE -MAY REPEAT X1 IV 07/30/17 17:00 07/31/17 07:26 DC 07/31/17 07:11 Oxytocin/Lactated Ringer's 500 ml @ 125 mls/hr ONCE IV 07/30/17 17:00 07/31/17 07:26 DC Lactated Ringer's 1,000 ml @ 2,000 mls/hr Q30M PRN IV PRE-EPIDURAL BOLUS 07/30/17 16:43 07/31/17 07:26 DC 07/31/17 01:26 Oxytocin/Lactated Ringer's 500 ml @ 0 mls/hr ONCE PRN IV For Hemorrhage Management 07/30/17 17:00 07/31/17 07:26 DC Methylergonovine Maleate (Methergine) 0.2 mg ONCE PRN IM VAGINAL BLEEDING 07/30/17 17:00 07/31/17 07:26 DC Carboprost Tromethamine (Hemabate) 250 mcg ONCE PRN IM VAGINAL BLEEDING 07/30/17 17:00 07/31/17 07:26 DC Misoprostol (Cytotec) 1,000 mcg ONCE PRN [place] VAGINAL BLEEDING 07/30/17 17:00 07/31/17 07:26 DC Bupivacaine HCl 10 ml 10 ml STK-MED ONCE .ROUTE 07/30/17 20:07 07/30/17 20:08 DC Oxytocin/Lactated Ringer's 500 ml @ 0 mls/hr Q0M IV 07/30/17 21:00 07/31/17 07:25 DC 07/30/17 21:22 Fentanyl/ Ropivacaine 100 ml @ ud STK-MED ONCE .ROUTE 07/31/17 01:58 07/31/17 01:59 DC Naloxone HCl (Narcan) 0.2 mg Q2M PRN IV FOR RESP RATE 8 OR LESS 07/31/17 02:30 07/31/17 07:25 DC Fentanyl/ Ropivacaine 100 ml EPIDURAL (PCEA) EPI 07/31/17 02:30 07/31/17 07:25 DC Meperidine HCl (Demerol) 25 mg STK-MED ONCE .ROUTE 07/31/17 02:34 07/31/17 02:35 DC Meperidine HCl (Demerol) 25 mg ONCE ONCE IV 07/31/17 03:00 07/31/17 03:01 DC 07/31/17 02:38 Mineral Oil 30 ml 30 ml ONCE ONCE TOP 07/31/17 06:00 07/31/17 06:26 DC 07/31/17 07:11 Lactated Ringer's (Lr) 1,000 ml @ 125 mls/hr Q8H IV* 07/31/17 07:23 08/02/17 08:12 DC 07/31/17 22:29 Ibuprofen (Motrin) 600 mg Q6 PO 07/31/17 12:00 08/02/17 15:29 DC 08/02/17 12:22 Acetaminophen/ Hydrocodone Bitart ([place] (5/325)) 1 tab Q4H PRN PO PAIN LEVEL 1-5 07/31/17 07:30 08/02/17 15:29 DC Benzocaine (Dermoplast [place]) 1 spray BEDSIDE MEDICATION PRN TOP HEMORRHOID/EPISIOTMY PAIN 07/31/17 07:30 08/02/17 15:29 DC 07/31/17 14:41 Lanolin (Rsn-[id number]-Ibchcb) 1 applic BEDSIDE MEDICATION PRN TOP BEDSIDE FOR JOSE LUIS TO NIPPLES 07/31/17 07:30 08/02/17 15:29 DC 07/31/17 13:15 Diphtheria/ Tetanus/Acell Pertussis 0.5 ml 0.5 ml ONCE ONCE IM* 08/02/17 09:00 08/02/17 09:01 DC 08/02/17 09:39 Oxytocin/Lactated Ringer's 500 ml @ 0 mls/hr ONCE PRN IV For Hemorrhage Management 07/31/17 07:30 08/02/17 15:29 DC 07/31/17 14:43 Methylergonovine Maleate (Methergine) 0.2 mg ONCE PRN IM VAGINAL BLEEDING 07/31/17 07:30 08/02/17 15:29 DC Carboprost Tromethamine (Hemabate) 250 mcg ONCE PRN IM VAGINAL BLEEDING 07/31/17 07:30 08/02/17 15:29 DC Misoprostol 1000 mcg 1,000 mcg ONCE PRN [place] VAGINAL BLEEDING 07/31/17 07:30 08/02/17 15:29 DC Magnesium Sulfate 100 ml @ 200 mls/hr ONCE ONCE IV 07/31/17 08:00 07/31/17 08:29 DC 07/31/17 07:59 Magnesium Sulfate 500 ml @ 50 mls/hr Q10H IV 07/31/17 07:35 08/01/17 08:33 DC 08/01/17 04:53 Magnesium Sulfate (Magnesium Sulfate 4 Gm/100 ml) 100 ml @ STK-MED ONCE .ROUTE 07/31/17 07:41 07/31/17 07:42 DC Labetalol HCl (Normodyne) 100 mg BID PO 07/31/17 12:30 07/31/17 16:38 DC 07/31/17 13:17 Labetalol HCl (Normodyne) 100 mg ONCE ONCE PO 07/31/17 17:00 07/31/17 17:01 DC 07/31/17 16:54 Labetalol HCl (Normodyne) 200 mg BID PO 07/31/17 21:00 08/02/17 15:29 DC Influenza Virus Vaccine (Fluzone) 0.5 ml ONCE ONCE IM* 08/01/17 20:00 08/01/17 20:01 DC 08/01/17 14:54 Voiding: Yes Bowel Movement: Yes Breast: Soft, non-tender Fundus: Firm Calf Tenderness: No Patient Condition: Good LUBA RAMSEY MD Aug 02, 2017 19:56
== END 2017-08-02 14:40 | disposition home or self-care (01) | DRG 775 ==
LOC: OBT 13:20 → L-D 13:21 → OBT 13:50 → L-D 15:35 → PP1 07-31 09:09
PROVIDERS: ADMIT Obstetrics & Gynecology; ATTEND Obstetrics & Gynecology
PROC: 10E0XZZ Delivery of Products of Conception, External Approach (ICD-10-PCS; principal; 2017-07-31)
PROC: 0HQ9XZZ Repair Perineum Skin, External Approach (ICD-10-PCS; 2017-07-31)
DX: O70.0 First degree perineal laceration during delivery (principal); Z37.0 Single live birth; Z3A.40 40 weeks gestation of pregnancy
CPT/HCPCS: 62319; 76815; 76818; 80053; 81001; 83735; 84560; 85025; 85362; 85384; 85610; 85730; 86592; 86900; 86901; 90686; 90715; G0463; J2175; J2590; J3010; J3475; J7120